=== PATIENT | male | born 1965 ===

== ENCOUNTER 2021-08-26 14:48 | Outpatient (CLI) | payer MEDICAID, SELFPAY ==
--- NOTE | 2021-08-26 | DI.RAD_ITS ---
Exam(s) XR CHEST 2V PA LATERAL EXAM: XR CHEST 2V PA LATERAL CLINICAL HISTORY: LYMPHOMA C83.30 COVID U07.1 TECHNIQUE: 2D digital imaging was performed of the chest. Two images were obtained. PA and lateral views were obtained. COMPARISON: No exams were available for comparison FINDINGS: MEDIASTINUM: Normal. HEART: Normal. PULMONARY VASCULATURE: Normal. LUNGS: The lungs are hyperlucent particularly in the apices suggesting underlying COPD. There are in filtrates seen in the lung bases, left greater than right. PLEURAL SPACE: No pleural effusion or pneumothorax. BONE:Within normal limits for the patient's age. There is a mild pectus excavatum deformity. OTHER FINDINGS:Normal. IMPRESSION: Bilateral basilar pulmonary infiltrates, left greater than right. The findings are suspicious for pn eumonia. DATA REPOSITORY: RADIATION DOSE DELIVERED:
[2021-08-26 12:12] LABS: Abs Immature Grans 0.04 10^3/uL (0.0-0.06); Absolute Basophil Count 0.05 10^3/uL (0.0-0.2); Absolute Eosinophil Count 0.06 10^3/uL (0.0-0.7); Absolute Lymphocyte Count 0.54 10^3/uL (1.2-3.4); Absolute Monocyte Count 0.27 10^3/uL (0.1-0.8); Absolute Neutrophil Count 9.05 10^3/uL (1.2-6.7); Basophils % 0.5; Eosinophils % 0.6; HCT 29.7 % (40.0-50.0); HGB 9.8 g/dL (13.5-17.5); Immature Grans % 0.4; Lymphocytes % 5.4; MCH 30.5 pg (27.0-33.0); MCV 92.5 fL (80-95); MPV 9.4 fL (8.0-11.0); Monocytes % 2.7; Neutrophils % 90.4; Nucleated RBC 0 %; RBC 3.21 10^6/uL (4.36-5.78); RDW 19.4 % (11.8-14.1); RDW-SD 61.7 fL; WBC 10.01 10^3/uL (4.4-10.8)
[2021-08-26 12:34] LABS: Platelet Count 89 10^3/uL (130-400)
[2021-08-26 12:36] LABS: ALT 62 U/L (16-63); AST 54 U/L (15-37); Albumin 2.1 g/dL (3.4-5.0); Alkaline Phosphatase 263 U/L (46-116); Anion Gap 6.6 mmol/L (3-11); BUN 28 mg/dL (7-18); Bilirubin, Total 0.4 mg/dL (0.2-1.0); CO2 26.4 mmol/L (21.0-32.0); CREATININE 0.8 mg/dL (0.70-1.30); Calcium 8.5 mg/dL (8.5-10.1); Chloride 99 mmol/L (98-107); Glucose 78 mg/dL (74-106); LDH 170 U/L (85-227); Potassium 4.3 mmol/L (3.5-5.1); Sodium 132 mmol/L (136-145); Total Protein 6.7 g/dL (6.4-8.2)
== END 2021-08-26 14:49 | disposition home or self-care (01) ==
LOC: LBO 14:49
PROVIDERS: Visit Provider Internal Medicine Hematology & Oncology
DX: C83.38 Diffuse large B-cell lymphoma, lymph nodes of multiple sites (principal); U07.1 COVID-19; R91.8 Other nonspecific abnormal finding of lung field
CPT/HCPCS: 36415; 80053; 86850; 86900; 86901; 71046; 83615; 85025